=== PATIENT | male | born 1960 | race Caucasian/White ===

== ENCOUNTER → 2020-06-17 | Outpatient (CLI) | payer MEDICARE, OTHER ==
[~2020-06-17] MED LIST: ASPIRIN CHEWABL81 MG PO; CATAPRES 0.1MG0.1 MG PO; COLACE 100MG C100 MG PO; FLOMAX0.4 MG PO; GABAPENTIN100 MG PO; HYGROTON TAB 2525 MG PO; MEDROL DOSEPAK 24 MG PO; NORCO 7.5-3251 EACH PO; PRINIVIL20 MG PO; ZEBETA 5 MG TAB5 MG PO
== END ==
LOC: KOH-I 12:56
DX: M79.672 Pain in left foot (principal); S96.812A Strain of other specified muscles and tendons at ankle and foot level, left foot, initial encounter; M72.2 Plantar fascial fibromatosis; X58.XXXA Exposure to other specified factors, initial encounter
CPT/HCPCS: 73718

== ENCOUNTER 2020-10-24 12:03 | Emergency (ER) | payer MEDICARE, OTHER ==
[~2020-10-24 12:03] MED LIST changes: -MEDROL DOSEPAK 24 MG PO
[2020-10-24] MEDS ORDERED: MEDROL DOSEPAK 24 MG PO (16:40)
== END 2020-10-24 16:58 | disposition home or self-care (01) ==
LOC: ER1 12:03
DX: M54.5 Low back pain (principal); I10 Essential (primary) hypertension; Z90.49 Acquired absence of other specified parts of digestive tract; Z90.89 Acquired absence of other organs; Z79.82 Long term (current) use of aspirin; Z79.899 Other long term (current) drug therapy
CPT/HCPCS: 72131; 96372; 99283